=== PATIENT | male | born 1945 | race Caucasian/White ===

== ENCOUNTER 2020-10-28 13:30 | Inpatient (IN) | payer OTHER, MEDICARE ==
[~2020-10-28] VITALS: Ht 172.7 cm; Wt 83.6 kg
[2020-10-28 13:48] LABS: BASOPHILS ABSOLUTE AUTO 0.03 K/mm3 (0.00-0.23); BASOPHILS PERCENT AUTO 0 % (0-2); EOSINOPHILS ABSOLUTE AUTO 0.01 K/mm3 (0.00-0.68); EOSINOPHILS PERCENT AUTO 0 % (0-6); Hematocrit 36.2 % (37.0-53.0); Hemoglobin 12.7 g/dL (13.5-17.5); IMMATURE GRAN ABSOLUTE AUTO 0.06 K/mm3 (0.00-0.10); IMMATURE GRAN PERCENT AUTO 0 % (0-1); LYMPHOCYTES ABSOLUTE AUTO 0.93 K/mm3 (0.84-5.20); LYMPHOCYTES PERCENT AUTO 5 % (21-46); MONOCYTES ABSOLUTE AUTO 1.39 K/mm3 (0.16-1.47); MONOCYTES PERCENT AUTO 8 % (4-13); Mean Corpuscular HGB 30.8 pg (26.0-34.0); Mean Corpuscular HGB Conc 35.1 g/dL (31.5-36.5); Mean Corpuscular Volume 88 fL (80-100); Mean Platelet Volume 10.3 fL (9.1-12.4); NEUTROPHILS ABSOLUTE AUTO 15.44 K/mm3 (1.96-9.15); NEUTROPHILS PERCENT AUTO 86 % (41-73); Platelet Count 224 K/mm3 (150-400); RDW Coefficient Variation 12.5 % (11.7-14.2); RDW Standard Deviation 39.9 fL (35.1-46.3); Red Blood Cell Count 4.13 M/mm3 (4.30-5.90); White Blood Cell Count 17.86 K/mm3 (4.00-11.30)
[2020-10-28 14:18] LABS: Alanine Aminotransfer (ALT/SGP 40 U/L (12-78); Albumin, Blood 3.4 g/dL (3.4-5.0); Albumin/Globulin Ratio 1.1 (0.8-1.8); Alk Phos 53 U/L (50-136); Anion Gap 8 mmol/L (6-16); Aspartate Aminotrans (AST/SGOT 39 U/L (12-37); Bilirubin, Total 0.8 mg/dL (0.1-1.0); Blood Urea Nitrogen 16 mg/dL (8-24); Bun/Creatinine Ratio 16.2 (12.0-20.0); CO2, Blood 21 mmol/L (21-32); Calcium, Blood 9.2 mg/dL (8.5-10.1); Chloride, Blood 114 mmol/L (98-108); Creatinine, Blood 0.99 mg/dL (0.60-1.20); Ethanol (Alcohol), Blood, Med <3 mg/dL; Glomerular Filtration Rate >60 (60-); Glucose, Blood 133 mg/dL (70-99); Potassium, Blood 3.3 mmol/L (3.5-5.5); Sodium, Blood 143 mmol/L (136-145); Total Protein, Blood 6.4 g/dL (6.4-8.2)
[2020-10-28 15:37] LABS: International Normalized Ratio 1.01; Prothrombin Time Results 10.9 Sec (9.7-11.5)
[2020-10-28 15:56] LABS: CPK Creatine Kinase 472 U/L (39-308); Creatine Kinase MB 9.4 ng/mL (0.0-3.6); Troponin I <0.015 ng/mL (0.000-0.040)
[2020-10-28 16:06] LABS: U Amphetamine Screen Not Detected; U Barbituate Screen Not Detected; U Benzodiazapine Screen Not Detected; U Buprenorphine Screen Not Detected; U Cannabinoids Screen Not Detected; U Cocaine Screen Not Detected; U Methadone Screen Not Detected; U Methamphetamine Screen Not Detected; U Opiates Screen Not Detected; U Oxycodone Screen Not Detected; U Phencyclidine Screen Not Detected; U Propoxyphene Screen Not Detected
[2020-10-28 19:04] LABS: SARS-Cov-2 (COVID-19) PCR, MMC NEGATIVE (NEGATIVE)
[2020-10-28 19:31] LABS: Base Excess Venous -3.1 mmol/L; Bicarbonate Venous 22.4 mmol/L (24.0-30.0); PCO2 Venous 34.1 mmHg (38-42); PO2 Venous 117 mmHg (38-42); pH Blood Venous 7.41 (7.34-7.37)
[2020-10-28 22:19] LABS: Source, Urine Catheter
[2020-10-28 22:21] LABS: Bilirubin, Urine Neg (Neg); Blood, Urine 3+ (Neg); Glucose Qualitative, Urine Neg (Neg); Ketones, Urine Neg (Neg); Leukocyte Esterase, Urine Neg (Neg); Nitrite, Urine Neg (Neg); Protein, Urine Neg (Neg); Specific Gravity, Urine 1.005 (1.003-1.022); Urobilinogen, Urine NORM (Normal)
[2020-10-28 22:31] LABS: Appearance, Urine Clear (Clear); Color, Urine Pale Yellow (P-Yellow)
[2020-10-28 22:32] LABS: Bacteria Not Seen /hpf; Squamous Epithelial Cells Not Seen /hpf (Few); White Blood Cells, Urine Not Seen /hpf (0-5)
--- NOTE | 2020-10-28 22:40 | NUR ---
ADMIT NOTE PT OPENS EYES TO NAME, PAIN. PT STATES, "OK" AND "MHMM" TO QUESTIONS ASKED, BUT DOES NOT FOLLOW MOST COMMANDS, THOUGH PT DID SQUEEZE THIS RN'S FINGERS WHEN REQUESTED TO. SP02>92% ON RA. TELEMETRY READS SR, HR 70'S. HEAD OF BED ELEVATED, COLLAR IN PLACE. CSPINE HELD, PT LOGGED ROLLED, TO ASSESS SKIN. MULTPILE ABRASIONS, SEE PICS IN CHART. PT SQUIRMING, PULLING AT THINGS UPON ADMIT. BLADDER SCAN DONE TO SHOW >500. CALL PLACED TO . WITH ORDERS FOR RICE CATHETER. PT STOPPED SQUIRMING AFTER CATHETER PLACED. PT CONTINUES TO PULL AT ANYTHING IN REACH, SOFT RESTRAINTS IN PLACE. CALL LIGHTIN REACH.
[2020-10-29 04:47] LABS: BASOPHILS ABSOLUTE AUTO 0.05 K/mm3 (0.00-0.23); BASOPHILS PERCENT AUTO 0 % (0-2); EOSINOPHILS ABSOLUTE AUTO 0.01 K/mm3 (0.00-0.68); EOSINOPHILS PERCENT AUTO 0 % (0-6); Hematocrit 36.5 % (37.0-53.0); Hemoglobin 12.6 g/dL (13.5-17.5); IMMATURE GRAN ABSOLUTE AUTO 0.06 K/mm3 (0.00-0.10); IMMATURE GRAN PERCENT AUTO 1 % (0-1); LYMPHOCYTES ABSOLUTE AUTO 1.34 K/mm3 (0.84-5.20); LYMPHOCYTES PERCENT AUTO 12 % (21-46); MONOCYTES ABSOLUTE AUTO 1.47 K/mm3 (0.16-1.47); MONOCYTES PERCENT AUTO 13 % (4-13); Mean Corpuscular HGB 30.7 pg (26.0-34.0); Mean Corpuscular HGB Conc 34.5 g/dL (31.5-36.5); Mean Corpuscular Volume 89 fL (80-100); NEUTROPHILS ABSOLUTE AUTO 8.24 K/mm3 (1.96-9.15); NEUTROPHILS PERCENT AUTO 74 % (41-73); RDW Coefficient Variation 12.9 % (11.7-14.2); RDW Standard Deviation 42.3 fL (35.1-46.3); Red Blood Cell Count 4.11 M/mm3 (4.30-5.90); White Blood Cell Count 11.17 K/mm3 (4.00-11.30)
[2020-10-29 04:52] LABS: Mean Platelet Volume 10.7 fL (9.1-12.4); Platelet Count 171 K/mm3 (150-400)
[2020-10-29 05:08] LABS: Alanine Aminotransfer (ALT/SGP 40 U/L (12-78); Albumin, Blood 3.2 g/dL (3.4-5.0); Albumin/Globulin Ratio 1.1 (0.8-1.8); Alk Phos 50 U/L (50-136); Anion Gap 7 mmol/L (6-16); Aspartate Aminotrans (AST/SGOT 48 U/L (12-37); Bilirubin, Total 0.9 mg/dL (0.1-1.0); Blood Urea Nitrogen 11 mg/dL (8-24); Bun/Creatinine Ratio 9.4 (12.0-20.0); CO2, Blood 22 mmol/L (21-32); Calcium, Blood 7.9 mg/dL (8.5-10.1); Chloride, Blood 115 mmol/L (98-108); Creatinine, Blood 1.17 mg/dL (0.60-1.20); Glomerular Filtration Rate >60 (60-); Glucose, Blood 104 mg/dL (70-99); Magnesium, Blood 2.1 mg/dL (1.6-2.4); Potassium, Blood 3.8 mmol/L (3.5-5.5); Sodium, Blood 144 mmol/L (136-145); Total Protein, Blood 6.2 g/dL (6.4-8.2); Troponin I 0.025 ng/mL (0.000-0.040)
--- NOTE | 2020-10-29 06:31 | NUR ---
SHIFT SUMMARY PT SPONTANEOUSLY OPENS LEFT EYE. PT CAN STATE NAME, WIFES NAME. WHEN ASKED WHERE HE IS, PT STATES, "HOME." CAN SQUEEZE FINGERS ON COMMAND, BUT ATTEMPTS TO SIT UP, PULL AT LINES. SP02>92% ON RA-1L NC. TELEMETRY READS SR, HR 70'S. PT HAS RICE CATHETER DRAINING CLEAR YELLOW URINE TO GRAVITY. DESPITE CATHETER, PT STATES, "I HAVE TO PEE". PT AGITATED, PULLING AT LINES, REMAINS IN RESTRAINTS AND C COLLAR. PT GIVEN FENTANYL PER EMAR X1 THIS SHIFT. PT SLEPT FOR ABOUT 2 HOURS. PT HAS MULTIPLE WOUNDS, SEE PICS IN CHART. WOUNDS CLEANED AND DRESSED. CALL LIGHT IN REACH. WILL GIVE REPORT TO ONCOMING NURSE.
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
--- NOTE | 2020-10-30 06:06 | NUR ---
SHIFT SUMMARY PT A&OX3. FOLLOWS DIRECTIONS, ANSWERS QUESTIONS APPROPRIATELY. PT DID ATTEMPT TO GET OUT OF BED X1. WHEN ASKED WHAT HE WAS DOING, PT STATES, "IM HUNGRY, IM GOING TO GET SOMETHING TO EAT." EDUCATED PT ON WHY HE WAS NPO AND THAT WE WERE WAITING FOR A SPEECH EVAL. PT AGREEABLE, STATED HE UNDERSTOOD. SP02>92% ON RA. TELEMETRY READS NSR, HR 70'S. PT DENIES PAIN. RICE CATHETER DRAINING CLEAR YELLOW URINE TO GRAVITY. PT HAS ASPEN COLLAR IN PLACE, COLLAR REP IN ROOM EDUCATING PT AND PT'S ABOUT PRODUCT. NS INFUSED PER EMAR. PT SLEPT HALF OF SHIFT. CALL LIGHT IN REACH. WILL GIVE REPORT TO ONCOMING NURSE.
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
--- NOTE | 2020-10-30 12:58 | NUR ---
ARRIVAL TO UNIT FROM PCU VIA W/C. STNDBY ASSIST TO BED. R EYE SHUT W/ SWELLING/REDNESS, BUT TRACKING APPROP W/ L EYE. ALERT & ORIENTED APPROP. TELE IN PLACE; NSR. LUNGS CLEAR. SCATTERED ABRASIONS T/O BODY. ASPEN COLLAR ON.
--- NOTE | 2020-10-30 16:00 | NUR ---
R EYE BEGINS TO OPEN SPONT AFTER HOT COMPRESS & GENTLE IRRIGATION. EYES TRACK EVENLY; LUIS A. LENS GAUGER EQUAL & EXTENTION & RETRATION ON BLE EQUAL.
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
--- NOTE | 2020-10-31 07:28 | NUR ---
SUMMARY PT CONT IMPULSIVE REQUIRING BED ALARM FOR SAFETY.PTS R EYELID CONT CRUSTING, BUT RAMA PERKINS EYES TRACK,[place].STANDS AT BEDSIDE WITH MIMAL ASSIST.IMPROVED MEMORY T/ONIGHT.REMEMBERS THE MONTH YEAR I TOLD HIM WITH PREVIOUS CHECKS.
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
--- NOTE | 2020-11-01 06:26 | NUR ---
PT GETTING HEAD CT AT THIS TIME.
--- NOTE | 2020-11-01 07:35 | NUR ---
pt oob to bathroom set off the bedalarm stated no pain at this time no h/a r eye swollen pupil to l brianda hillman check pos pt is slow to respond with questions but ans them
--- NOTE | 2020-11-01 08:55 | NUR ---
EYE CLEANED WITH NS AMD OINT APPLIED
--- NOTE | 2020-11-01 09:43 | NUR ---
amb in hallway with physical therapy
[2020-11-01] MEDS ORDERED: DOCU100 PO (11:26)
[2020-11-01] MEDS ORDERED: LEVE500 PO (11:28)
[2020-11-01] MEDS ORDERED: Prinivil10 MG PO (11:29)
--- NOTE | 2020-11-01 12:45 | NUR ---
discharge instructions reviewed with pt and spouse dr griffin by to see pt supplies given for eye care instructions given on c collar
== END 2020-11-01 15:10 | disposition home health service (06) | DRG 83 ==
LOC: EDBD 13:30 → ER 13:30 → ERHOLD 13:31 → PCU 18:42 → SURS 18:42 → ERHOLD 18:42 → PCU 21:00 → SURS 10-30 12:51
PROVIDERS: Emergency Medicine; Hospitalist; ADMIT Surgery
DX: S06.6X9A Traumatic subarachnoid hemorrhage with loss of consciousness of unspecified duration, initial encounter (principal); D62 Acute posthemorrhagic anemia; G93.40 Encephalopathy, unspecified; S20.319A Abrasion of unspecified front wall of thorax, initial encounter; Z20.822 Contact with and (suspected) exposure to COVID-19; R40.2433 Glasgow coma scale score 3-8, at hospital admission; E87.6 Hypokalemia; S00.81XA Abrasion of other part of head, initial encounter; I10 Essential (primary) hypertension; S30.811A Abrasion of abdominal wall, initial encounter; S19.80XA Other specified injuries of unspecified part of neck, initial encounter; R13.10 Dysphagia, unspecified; V19.88XA Pedal cyclist (driver) (passenger) injured in other specified transport accidents, initial encounter
CPT/HCPCS: 36415; 51701; 70450; 70486; 70496; 70498; 70551; 71045; 71260; 72125; 72141; 74177; 80053; 81001; 82550; 82553; 82803; 83605; 83735; 84484; 85025; 85610; 85730; 86850; 86900; 86901; 90471; 90714; 92507; 92523; 92526; 92610; 94762; 96365-59; 96372-59; 96375-59; 96376-59; 97110; 97116; 97129; 97130; 97161; 97166; 97530; 99285-25; A9270; G0480; J1953; J2060; J2405; J2765; J3010; J7030; Q9967; U0004